=== PATIENT | male | born 1970 | race Caucasian/White ===

== ENCOUNTER 2022-01-22 12:30 | Outpatient (CLI) | payer BC, SELFPAY ==
--- NOTE | ~2022-01-22 | US_ITS ---
EXAMINATION: US soft tissue UE LT DATE: 01/22/2022 13:00 INDICATION: Localized swelling, mass and lump at the left shoulder TECHNIQUE: Multiple grayscale and Doppler ultrasound images of the region of concern along the cephal ad aspect of the left shoulder were obtained. COMPARISON: None FINDINGS/IMPRESSION: Nonspecific 3.6 x 1.0 x 4.1 cm mixed hypoechoic and anechoic complex lesion without internal vascular flow on color Doppler at the region of concern. Location and appearance suggests a combination of fl uid and synovitis either within a bursa or ganglion cyst. Differential would include subacromial/subd eltoid bursitis or large ganglion cyst arising from either the glenohumeral or acromioclavicular join ts. This is would affect clinical management or there is concern for internal derangement would consi ciera older MRI for more comprehensive evaluation. Reviewed, dictated and finalized at location A. [employer]
== END 2022-01-22 12:31 | disposition home or self-care (01) ==
LOC: ANHIMG 12:31
PROVIDERS: PCP Internal Medicine; Visit Provider Nurse Practitioner
DX: R22.9 Localized swelling, mass and lump, unspecified (principal)
CPT/HCPCS: 76882

== ENCOUNTER → 2023-02-18 10:00 | Outpatient (CLI) | payer BC, SELFPAY ==
--- NOTE | ~2023-02-18 | MR_ITS ---
EXAMINATION: MR shoulder LT wo/w con DATE: 02/18/2023 11:34 INDICATION: Left shoulder mass. TECHNIQUE: Magnetic resonance imaging (MRI) of the left shoulder was performed without and with 18 mL MultiHance intravenous contrast. COMPARISON: Left shoulder MRI 07/23/2013, radiographs 02/12/2023 FINDINGS: Coracoacromial arch: The acromion undersurface is curved in morphology with anterior hook (type III). There is severe acro mioclavicular joint osteoarthritis. There is an effusion of the acromioclavicular joint. There is a 4 .1 x 4.3 x 1.5 cm multiloculated ganglion cyst superior to the acromioclavicular joint. There is a 2. 9 x 2.0 x 1.0 cm ganglion cyst inferior to the acromioclavicular joint. There is moderate subacromial /subdeltoid bursitis. Rotator cuff: There is severe supraspinatus tendinopathy and moderate infraspinatus tendinopathy. There are full-th ickness and partial-thickness tears of supraspinatus tendon measuring 1.7 cm anterior to posterior by 2.4 cm proximal to distal. The two separate areas of full-thickness tear measure up to 3 mm anterior to posterior. Teres minor tendon is normal. There is moderate subscapularis tendinopathy. There is a small interstitial tear of distal subscapularis tendon. The rotator cuff muscle bellies are normal. There are surgical changes of the greater tuberosity. Biceps tendon and glenoid labrum: Biceps tendon is perched at the anterior lip of the bicipital groove. There is a longitudinal split t ear of biceps tendon. There is degenerative tearing of the glenoid labrum. Fluid: There is a small glenohumeral joint effusion. Bones/cartilage: There is shallow partial-thickness cartilage loss of glenoid and humeral head. IMPRESSION: 1. Ganglion cysts superior and inferior to the acromioclavicular joint. 2. Severe acromioclavicular joint osteoarthritis. 3. Rotator cuff tears and changes of rotator cuff repair. 4. Mild glenohumeral joint chondrosis. 5. Longitudinal split tear of biceps tendon. 6. Small glenohumeral joint effusion and moderate subacromial/subdeltoid bursitis. Reviewed, dictated and finalized at location A. IMPRESSION: 1. Ganglion cysts superior and inferior to the acromioclavicular joint. 2. Severe acromioclavicular joint osteoarthritis. 3. Rotator cuff tears and changes of rotator cuff repair. 4. Mild glenohumeral joint chondrosis. 5. Longitudinal split tear of biceps tendon. 6. Small glenohumeral joint effusion and moderate subacromial/subdeltoid bursit is.
== END ==
PROVIDERS: PCP Internal Medicine; Visit Provider Orthopaedic Surgery
DX: M67.412 Ganglion, left shoulder (principal); M19.012 Primary osteoarthritis, left shoulder; M75.102 Unspecified rotator cuff tear or rupture of left shoulder, not specified as traumatic; M94.8X2 Other specified disorders of cartilage, upper arm; S46.212A Strain of muscle, fascia and tendon of other parts of biceps, left arm, initial encounter; M25.412 Effusion, left shoulder; M75.52 Bursitis of left shoulder
CPT/HCPCS: 73223; A9577

== ENCOUNTER 2023-04-15 08:09 | Outpatient (CLI) | payer BC, SELFPAY ==
[2023-04-15 14:24] LABS: Basophils Absolute Auto 0.1 K/mm3 (0.0-0.1); Basophils Percent Auto 0.6 % (0.2-1.2); Eosinophils Absolute Auto 0.3 K/mm3 (0-0.3); Eosinophils Percent Auto 3.1 % (0-4.4); Hemoglobin 16.1 g/dL (14.0-18.0); Immature Granulocyte Absolute 0.02 K/mm3 (0.00-0.031); Immature Granulocyte Percent A 0.2 % (0-0.5); Lymphocytes Absolute Auto 2.04 K/mm3 (0.9-3.2); Lymphocytes Percent Auto 24.1 % (18.3-44.2); Mean Corpuscular HGB Conc 32.9 g/dl (32-36); Mean Corpuscular Hemoglobin 29.3 pg (26-34); Mean Corpuscular Volume 89.3 fl (80-100); Monocytes Absolute Auto 0.6 K/mm3 (0.1-0.6); Monocytes Percent Auto 6.9 % (2.6-8.5); Neutrophils Absolute Auto 5.5 K/mm3 (1.3-6.7); Neutrophils Percent Auto 65.1 % (45.5-73.1); Platelet Count Result 172 k/mm3 (150-375); Red Blood Count 5.49 M/mm3 (4.6-6.20); Red Cell Distribution Width 12.4 % (11.5-14.5); White Blood Count 8.5 K/mm3 (4.5-10.0)
[2023-04-15 14:26] LABS: Alanine Aminotransferase 26 U/L (6-50); Albumin Level 4.5 g/dL (3.5-5.1); Alkaline Phosphatase 73 U/L (38-126); Anion Gap 6 mmol/L (8-16); Aspartate Amino Transferase 37 U/L (17-59); Bilirubin,Total 0.7 mg/dL (0.2-1.3); Blood Urea Nitrogen 16 mg/dL (9-20); Calcium 9.3 mg/dL (8.4-10.2); Carbon Dioxide 31 mmol/L (22-30); Chloride 101 mmol/L (98-107); Cholesterol 146 mg/dL (0-200); Estimated Glomerular Filt Rate > 60; Glucose 151 mg/dL (65-110); HDL Direct 42 mg/dL; Potassium 4.8 mmol/L (3.4-5.0); Sodium 138 mmol/L (137-145); Triglycerides 206 mg/dL (<150)
[2023-04-15 14:37] LABS: LDL Cholesterol Direct 58 mg/dL
[2023-04-15 14:49] LABS: Creatinine Urine 161.3 mg/dL
[2023-04-15 14:53] LABS: Hemoglobin A1C 8.1 % (<5.7)
[2023-04-15 14:54] LABS: Prostate Specific Antigen 0.8 ng/mL (< OR = 4.0)
[2023-04-15 14:55] LABS: MALB Creatinine Ratio 4.8 mg/g (0-30); Microalbumin Urine Random 7.7 mg/L (0-16.7)
[2023-04-24 15:51] LABS: Testosterone Total 372 ng/dL (250-1100)
== END 2023-04-15 08:10 | disposition home or self-care (01) ==
LOC: ANHGOSHLAB 08:10
PROVIDERS: PCP Internal Medicine; Visit Provider Clinical Nurse Specialist
DX: Z12.5 Encounter for screening for malignant neoplasm of prostate (principal); E78.00 Pure hypercholesterolemia, unspecified; R53.83 Other fatigue; E11.9 Type 2 diabetes mellitus without complications
CPT/HCPCS: 36415; 80053; 80061; 82043; 82607; 83036; 84153; 84402; 84403; 85025; G0103

== ENCOUNTER 2023-08-13 11:29 | Outpatient (CLI) | payer BC, SELFPAY ==
[2023-08-13 19:29] LABS: Alanine Aminotransferase 19 U/L (6-50); Albumin Level 4.7 g/dL (3.5-5.1); Alkaline Phosphatase 62 U/L (38-126); Anion Gap 8 mmol/L (8-16); Aspartate Amino Transferase 32 U/L (17-59); Bilirubin,Total 1.2 mg/dL (0.2-1.3); Blood Urea Nitrogen 14 mg/dL (9-20); Calcium 9.6 mg/dL (8.4-10.2); Carbon Dioxide 30 mmol/L (22-30); Chloride 102 mmol/L (98-107); Estimated Glomerular Filt Rate > 60; Glucose 126 mg/dL (65-110); Potassium 4.7 mmol/L (3.4-5.0); Sodium 140 mmol/L (137-145)
[2023-08-13 19:50] LABS: Iron 152 ug/dL (49-181)
[2023-08-13 19:59] LABS: Percent Iron Saturation 36 % (20-50)
[2023-08-13 20:00] LABS: Thyroid Stimulating Hormone 0.929 uIU/mL (0.465-4.680)
[2023-08-13 20:22] LABS: Hemoglobin A1C 6.8 % (<5.7)
[2023-08-13 20:35] LABS: Hematocrit 58.7 % (42.0-52.0); Hemoglobin 18.7 g/dL (14.0-18.0); Mean Corpuscular HGB Conc 31.9 g/dl (32-36); Mean Corpuscular Hemoglobin 29.3 pg (26-34); Mean Corpuscular Volume 91.9 fl (80-100); Mean Platelet Volume 11.6 fl (7.4-10.4); Platelet Count Result 201 k/mm3 (150-375); Red Blood Count 6.39 M/mm3 (4.6-6.20); Red Cell Distribution Width 13.1 % (11.5-14.5); White Blood Count 7.9 K/mm3 (4.5-10.0)
[2023-08-14 17:36] LABS: Prostate Specific Antigen 1.3 ng/mL (< OR = 4.0)
[2023-08-17 22:10] LABS: LH <0.2 mIU/mL (1.5-9.3); Prolactin 3.3 ng/mL (***)
[2023-08-20 09:30] LABS: Testosterone Total 1478 ng/dL (250-1100)
== END 2023-08-13 11:30 | disposition home or self-care (01) ==
LOC: ANHGOSHLAB 11:31
PROVIDERS: PCP Internal Medicine; Visit Provider Clinical Nurse Specialist
DX: E29.1 Testicular hypofunction (principal); E11.9 Type 2 diabetes mellitus without complications; I10 Essential (primary) hypertension; Z79.890 Hormone replacement therapy
CPT/HCPCS: 36415; 80053; 83002; 83036; 83540; 83550; 84146; 84153; 84402; 84403; 84443; 85027

== ENCOUNTER 2023-09-30 10:14 | Outpatient (CLI) | payer BC, SELFPAY ==
--- NOTE | 2023-09-30 10:25 | ECG_ITS ---
Measurements Intervals Ora Rate: 65 P: -30 CO: 180 QRS: 101 QRSD: 98 T: 41 QT: 381 QTc: 398 Interpretive Statements SINUS RHYTHM RIGHT AXIS DEVIATION BORDERLINE R WAVE PROGRESSION, ANTERIOR LEADS BASELINE ARTIFACT- I, III, AVL BORDERLINE ECG NO PREVIOUS ECG AVAILABLE FOR COMPARISON Electronically Signed On 09-30-2023 10:48:17 [employer]AKER by Jorje Choe D.O.
== END 2023-09-30 10:15 | disposition home or self-care (01) ==
LOC: ANHSURGERY 10:19
PROVIDERS: PCP Internal Medicine; Visit Provider Surgery
DX: Z01.818 Encounter for other preprocedural examination (principal); E11.9 Type 2 diabetes mellitus without complications
CPT/HCPCS: 93005

== ENCOUNTER 2023-10-03 00:26 | Day surgery (SDC) | payer BC, SELFPAY ==
--- NOTE | 2023-09-29 09:17 | PC.NURSE ---
Report to the Outpatient Waiting Room, entrance under the green pavilion located off [facility], at time _1130_ on date __10/03/23 _. Planned Procedure Time: _1330 . Time changes happen often and if your time is changed the preop area will call you the afternoon before. - You and your visitor will be asked to self-screen and do not enter if you have any COVID symptoms. - A mask is optional within the hospital at this time. Patients may have clear liquids (water, carbonated beverages, clear teas, apple juice) until 3 hours prior to surgery with a maximum of 20 ounces. - No food from midnight until time of surgery - Infants may have breast milk until 4 hours before surgery, formula 6 hours prior to surgery. - Children will be allowed to drink immediately following surgery. If applicable, please bring a bottle or sippy cup to assist with drinking. Juice, water, soda, and popsicles are readily available. For infants on formula, please bring formula the day of surgery. Pacifiers are allowed. Take the following medications with a SIP of water the morning of surgery: NONE DO NOT STOP ANY OF YOUR OTHER PRESCRIPTION MEDICATIONS PRIOR TO SURGERY ?EXCEPT THE FOLLOWING Medications to discontinue per physician NONE Date to take last dose Please no make-up, nail marshallese, hairspray, perfume, deodorant, or body powder the day of surgery. No jewelry (including any body piercings) or valuables the day of surgery, leave them at home. Please take a shower or bath the night before, or the morning of, surgery with hIBICLENS antibacterial soap. Wear comfortable, loose fitting clothing. Children are encouraged to wear pajamas. - Jewelry must be removed prior to entering the operating room. Rings and piercings that are not removed may be cut off. - The hospital will not accept responsibility for valuables. - Please leave all valuables, including medications, at home the day of surgery. If you are going home after surgery, a licensed tractor sweeper driver must drive you home. - NO public transportation without another adult if you receive anesthesia. - We recommend that an adult stay with you for 24 hours following discharge. - We also recommend that you do not drive, make important decision, drink alcoholic beverages, or take any drugs that were not prescribed by your health care provider for at least 24 hours after your discharge time. For Pediatric surgeries, we recommend two adults accompany the child home. Follow any additional instructions given to you from your surgeon. If you or anyone in your household have experienced Covid symptoms in the past week, please notify your surgeon or the nurse liaison at the phone number below for possible testing. Telephone instructions given to _PATIENT _and asked if any additional questions and then verbalized understanding. Patient advised to call surgeon office or pre surgery nurse liaison [phone] if any additional questions.
[2023-10-03] VITALS (10 sets, daily range): BP systolic 123–152; BP diastolic 83–107; PULSE 57–73; RESP 12–20; TEMP 36.3–36.6; O2SAT 98–100; BMI 26.6
[2023-10-03 12:15] LABS: Glucose Point of Care 130 mg/dl (65-105)
[2023-10-03] MEDS: KETOROLAC 15 MG/ML VIAL (*BKC) IV PUSH (12:30)
[2023-10-03] MEDS: ACETAMINOPHEN 500 MG TABLET 1000 MG PO (12:30)
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
[2023-10-03 13:15] LABS: Hemoglobin 18.1 g/dL (14.0-18.0)
--- NOTE | 2023-10-03 13:50 | WPDHPUPDATE1 ---
History and Physical Update Update Date/Time: 10/03/23 13:50 History and Physical has been reviewed, including an updated exam of the patient. There are NO changes in the patient's condition. Risks, benefits, and alternatives have been discussed and questions answered. Patient agrees to proceed with procedure.
[2023-10-03] MEDS: ceFAZolin 2 GM/D5W 50 ML 2 GM/50 ML BAG IVPB (14:23)
[2023-10-03] MEDS: BUPIVACAINE/EPINEPHRINE 0.5% 50 ML VIAL 30 ML INFILTRATE (14:52)
[2023-10-03] MEDS: LACTATED RINGERS 1,000 ML 30 ML IV CONT (15:05)
--- NOTE | 2023-10-03 15:09 | W.PM.PROC2 ---
Procedure Note - Detailed Date of Procedure 10/03/23 Pre-op Diagnosis Umb Hernia Post-op Diagnosis Same Procedure Performed Open 1 cm umbilical hernia repair with 4.[address] hernia patch Surgeon Donnie Rojas, DO Anesthesia General and Local (0.5% bupivacaine with epinephrine) Indications This is a 52-year-old man who presents with an umbilical bulge that he 1st noticed about 10 years ago. It has slightly increased in size since then and now is causing some pain with activity. He denies any change in bowel habits. He was found to have a 1 cm umbilical hernia at the superior edge of his umbilicus. Discussions were made with the patient about treatment options and decision was made to proceed with open umbilical hernia repair with possible mesh. Findings Open umbilical hernia repair was performed. The patient was found to have a 1 cm umbilical hernia containing some preperitoneal. The fatty tissue and hernia sac was excised and sent to the lab for pathology. The decision was made to repair this using a 4.[address] hernia patch. No other abnormalities were noted. Description of Procedure Procedure as well as risks, benefits, and alternatives were discussed with the patient. Written consent was obtained and placed in chart prior to procedure. Patient was brought back to surgical suite. He was placed supine on operating table. He was then intubated by Anesthesia Department. His abdomen was prepped and draped in sterile fashion using chlorhexidine prep. 0.5% bupivacaine with epinephrine was infiltrated locally around the operative area. A 3 cm curvilinear incision was made just superior to the umbilicus using a 15 blade scalpel. Electrocautery was used for hemostasis and for dissection down through the subcutaneous fat. Hernia sac was encountered and this was carefully freed up from surrounding subcutaneous fat using electrocautery. The hernia sac was freed up all the way down to the level of the fascia. The hernia sac was excised and sent to the lab for pathology. The umbilical stalk was then lifted off of the fascia with electrocautery. The hernia defect was then measured. This was measuring approximately 1 cm. The decision was made to use a 4.[address] hernia patch. The peritoneum was cleared under the fascia circumferentially around the hernia using blunt dissection and electrocautery. Once a wide enough pocket was created for the mesh, the mesh was then placed within this preperitoneal pocket and laid out flat centered on the hernia defect. The mesh appeared to be sitting in proper position. The mesh was then secured to the fascia with the closure of the hernia defect using 0 Ethibond [id number] sutures. A total of 3 sutures were placed vertically to approximate the fascia and secure the mesh. The repair was inspected and appeared secure. 0.5% bupivacaine with epinephrine was infiltrated around the fascia and subcutaneous space. The umbilical stalk was then reapproximated to the fascia using a 3 0 Vicryl simple interrupted suture. The deep dermis was reapproximated using 3 0 Vicryl simple interrupted sutures, and then the skin was approximated using 4 Monocryl running subcuticular suture. Exofin glue was then applied on top. The patient was then awakened from anesthesia, extubated, and transferred to recovery. Implants 4.[address] hernia patch Estimated Blood Loss 5 Pathology Yes (Hernia sac) Complications No immediate complications Condition Stable Disposition Same day [facility] Billing Surgery - Charge Forward: Surgery Billing
[2023-10-03 15:16] LABS: Glucose Point of Care 151 mg/dl (65-105)
== END 2023-10-03 16:54 | disposition home or self-care (01) ==
PROVIDERS: Anesthesiology; PCP Internal Medicine; Visit Provider Surgery
PROC: (CPT 49593; principal; 2023-10-03 13:30)
DX: K42.9 Umbilical hernia without obstruction or gangrene (principal); F41.9 Anxiety disorder, unspecified; I10 Essential (primary) hypertension; E78.00 Pure hypercholesterolemia, unspecified; E11.9 Type 2 diabetes mellitus without complications; Z82.49 Family history of ischemic heart disease and other diseases of the circulatory system; Z87.891 Personal history of nicotine dependence; Z79.84 Long term (current) use of oral hypoglycemic drugs
CPT/HCPCS: 49593; 36415; 82948; 85014; 85018; 88302; A9270; C1781; J0690; J1885; J2250; J2405; J2704; J3010; J7120

== ENCOUNTER 2025-04-27 10:36 | Outpatient (CLI) | payer BC, SELFPAY ==
[2025-04-27 12:29] LABS: Basophils Percent Auto 0.6 % (0.2-1.2); Eosinophils Absolute Auto 0.2 K/mm3 (0-0.3); Eosinophils Percent Auto 2.8 % (0-4.4); Hematocrit 52.3 % (42.0-52.0); Hemoglobin 17.3 g/dL (14.0-18.0); Immature Granulocyte Absolute 0.02 K/mm3 (0.00-0.031); Immature Granulocyte Percent A 0.3 % (0-0.5); Lymphocytes Absolute Auto 1.94 K/mm3 (0.9-3.2); Lymphocytes Percent Auto 28.4 % (18.3-44.2); Mean Corpuscular HGB Conc 33.1 g/dl (32-36); Mean Corpuscular Hemoglobin 29.6 pg (26-34); Mean Corpuscular Volume 89.6 fl (80-100); Mean Platelet Volume 11.6 fl (7.4-10.4); Monocytes Absolute Auto 0.5 K/mm3 (0.1-0.6); Monocytes Percent Auto 7.3 % (2.6-8.5); Neutrophils Absolute Auto 4.2 K/mm3 (1.3-6.7); Neutrophils Percent Auto 60.6 % (45.5-73.1); Platelet Count Result 150 k/mm3 (150-375); Red Blood Count 5.84 M/mm3 (4.6-6.20); Red Cell Distribution Width 12.2 % (11.5-14.5); White Blood Count 6.8 K/mm3 (4.5-10.0)
[2025-04-27 12:48] LABS: Alanine Aminotransferase 25 U/L (6-50); Albumin Level 4.4 g/dL (3.5-5.1); Alkaline Phosphatase 73 U/L (38-126); Anion Gap 7 mmol/L (4-12); Aspartate Amino Transferase 33 U/L (17-59); Bilirubin,Total 0.6 mg/dL (0.2-1.3); Blood Urea Nitrogen 19 mg/dL (9-20); Calcium 9.7 mg/dL (8.4-10.2); Carbon Dioxide 26 mmol/L (22-30); Chloride 105 mmol/L (98-107); Cholesterol 193 mg/dL (0-200); Estimated Glomerular Filt Rate > 60; Glucose 171 mg/dL (65-110); HDL Direct 44 mg/dL; Potassium 5.4 mmol/L (3.4-5.0); Sodium 138 mmol/L (137-145); Total Protein 7.4 g/dL (6.3-8.2); Triglycerides 239 mg/dL (<150)
[2025-04-27 12:59] LABS: LDL Cholesterol Direct 86 mg/dL
[2025-04-27 14:03] LABS: Hemoglobin A1C 8.4 % (<5.7)
[2025-04-27 15:01] LABS: Creatinine Urine 68.7 mg/dL
[2025-04-27 15:15] LABS: MALB Creatinine Ratio < 8.7 mg/g (0-30); Microalbumin Urine Random < 6.0 mg/L (0-16.7)
[2025-04-30 15:27] LABS: Testosterone Free 50.1 pg/mL (35.0-155.0); Testosterone Total 325 ng/dL (250-1100)
== END 2025-04-27 10:37 | disposition home or self-care (01) ==
LOC: ANHGOSHLAB 10:37
PROVIDERS: PCP Internal Medicine; Visit Provider Nurse Practitioner
DX: E29.1 Testicular hypofunction (principal); E11.65 Type 2 diabetes mellitus with hyperglycemia
CPT/HCPCS: 36415; 80053; 80061; 82043; 83036; 84402; 84403; 85025